=== PATIENT | male | born 1980 | race Caucasian/White ===

== ENCOUNTER 2023-11-14 04:04 | Emergency (ER) | payer SELFPAY ==
[2023-11-14] MEDS ORDERED: Diphtheria,Pertussis(Acell),Tetanus Vaccine 0.5 ML Syringe IM ONE (04:08)
[2023-11-14] MEDS ORDERED: Ibuprofen 400 MG Tab PO ONE (04:08)
[2023-11-14] MEDS ORDERED: Lidocaine 1% with EPINEPHrine 1:100,000 20 ML MDV INJECT ONE (04:52)
[2023-11-14] MEDS ORDERED: Oxymetazoline 0.05% Nasal Spray 30 ML Bottle NAS STA (05:50)
[2023-11-14] MEDS ORDERED: Midazolam 1 MG/ML 2 ML SDV IM ONE (08:30)
== END 2023-11-14 08:48 | disposition left against medical advice (07) ==
LOC: MW.ED 04:04
DX: S06.0X0A Concussion without loss of consciousness, initial encounter (principal); S12.9XXA Fracture of neck, unspecified, initial encounter; S01.411A Laceration without foreign body of right cheek and temporomandibular area, initial encounter; S01.412A Laceration without foreign body of left cheek and temporomandibular area, initial encounter; Z23 Encounter for immunization; W50.1XXA Accidental kick by another person, initial encounter
CPT/HCPCS: 12011; 70450; 70486; 72125; 90471; 90715; 99284; A9270; J3490

== ENCOUNTER 2023-11-15 11:35 | Emergency (ER) | payer SELFPAY ==
[2023-11-15] MEDS ORDERED: Midazolam 5 MG/ML SDV IM ONE (11:38)
== END 2023-11-15 14:56 | disposition home or self-care (01) ==
LOC: MW.ED 11:35
DX: S19.9XXA Unspecified injury of neck, initial encounter (principal); Y04.0XXA Assault by unarmed brawl or fight, initial encounter
CPT/HCPCS: 72141; 96372; 99283; J2250